=== PATIENT | male | born 1950 | race Caucasian/White ===

== ENCOUNTER 2017-11-29 07:43 | Inpatient (IN) | payer MEDICARE, BC ==
[2017-11-29] VITALS (17 sets, daily range): BP systolic 114–133; BP diastolic 50–75
[~2017-11-29] VITALS: Ht 152.4 cm; Wt 73.0 kg
[~2017-11-29 07:43] MED LIST: ASPIR 8181 MG PO; CALCIUM 500+D1 EAC2 PO; CENTRUM SILVER1 EAC4 PO; DIOVAN 80 MG TA80 M1 PO; EFFIENT10 MG PO; HYDRALAZINE 2525 MG PO; PLAVIX 75 MG TA75 M1 PO; SIMVASTATIN40 MG PO; TOPROL XL50 MG PO
[2017-11-29 08:22] LABS: HEMATOCRIT 41.1 % (42.0-52.0); HEMOGLOBIN 14.1 gm/dL (14.0-18.0); MCH 29.6 pg (26.0-34.0); MCHC 34.3 g/dL (28.0-37.0); MCV 86.2 fL (80.0-100.0); MPV 8.6 fl. (7.2-11.1); RBC 4.77 mil/uL (4.50-6.00); RDW-CV 13.3 % (10.5-14.5); WBC 6.5 thou/uL (4.0-11.0)
[2017-11-29 08:32] LABS: APTT 25.4 Seconds (25.0-31.3); INR 1.1; PROTIME 10.6 Seconds (9.20-11.50)
[2017-11-29 08:33] LABS: ANION GAP 8 mmol/L (7-16); BUN 21 mg/dL (7-18); CALCIUM 9.5 mg/dL (8.5-10.1); CHLORIDE 104 mmol/L (98-107); CO2 28 mmol/L (21-32); CREATININE 1.2 mg/dL (0.6-1.3); GLUCOSE 116 mg/dL (70-99); SODIUM 140 mmol/L (136-145)
[2017-11-29 08:37] LABS: ALKALINE PHOSPHATASE 52 U/L (46-116); CHOLESTEROL 102 mg/dL (<200); HDL CHOLESTEROL 49 mg/dL (>40); LDL CHOLESTEROL 47 mg/dL (<100); SERUM ASSESSMENT Clear; SGOT 25 U/L (15-37); SGPT 34 U/L (30-65); TC:HDL 2.1 Ratio (Not establshd); TOTAL BILIRUBIN 0.4 mg/dL (<0.1-1.0); TOTAL PROTEIN 7.4 g/dL (6.4-8.2); TRIGLYCERIDE 33 mg/dL (<150); VLDL 7 mg/dL (<40)
--- NOTE | 2017-11-29 14:54 | NUR ---
RECIEVED REPORT FROM MONICA RN IN NETWORK PLANNER OF EXPECTED TRANSFER POST CATH WITH 1 STENT REPORTED TO HAVE BEEN PLACED @1351-PT HERE FOR PLANNED CATH POST ABNORMAL STRESS X1 MONTH AGO- PT ARRIVED TO UNIT VIA CART AT @ 1405- PT ASSITED VIA SLIDE X2 TO BED-SILK FINISHER PLACED ORDERED, TRACING SR- PT A&O X4- CONTINENT OF BOWEL AND BLADDER- BEDREST AT THIS TIME POST CATH WITH RIGHT LEG INSTRUCTED NOT TO MOVE AT THIS TIME- LCTA, RESP EVEN AND UN-LABORED- VS 98.6 18 129/58 61 97% ON RA- ABDOMEN SOFT/ROUND/NON-TENDER, BS X4 QUADS- PT REPORTS TO HAVE HAD BM THIS AM- TRACE EDEMA NOTED TO BLE- IV NOTED TO LEFT AC INTACT, IVF INFUSING PRESCIBED- RIGHT GROIN ACCESSED PER CATH, AREA C/D/I WITH GAUZE DRESSING AND SECURED WITH TRANSPARENT TEGADREM- NO HEMATOMA NOTED C/D/I WITH NO DRAINAGE NOTED- CAP < 3, SENSATION INTACT- PT DENEIS ANY C/O PAIN/DISCOMFORT AT THIS TIME- CALL LIGHT AND PERSOANL BELONGINGS WITH IN REACH- HOURLY ROUNDS IN PLACE R/T SAFETY/NEEDS- ALL NEEDS MET AT THIS TIME-WCTM
--- NOTE | 2017-11-29 18:12 | EKG ---
[place] [address] ELECTROCARDIOGRAM REPORT Name: BILLIE QUINTERO Room: [address] ADM IN M.R.#: [id number] Admission: 11/29/17 Attend Phys: Christiano Bernal MD, Discharge: Date of : 48 Report #: [id number] THIS REPORT FOR: //name// [facility] Test Date: 2017-11-29 Test Time: 09:30:47 Pat Name: BILLIE QUINTERO Department: Room: [facility] Gender: M Mounter Saxophones: 26 : 1950 Requested By: Christiano Bernal Order Number: [id number] Adriana MD: Christiano Bernal Measurements Intervals [place] Rate: 61 P: 53 WI: 143 QRS: 85 QRSD: 94 T: 54 QT: 378 QTc: 381 Interpretive Statements Sinus rhythm Borderline right axis deviation Minimal ST elevation, anterior leads Compared to ECG 08/25/2016 08:26:01 ST (T wave) deviation now present Electronically Signed On 11-29-2017 18:12:21 CDT by Christiano Bernal [email or web address] <ELECTRONICALLY SIGNED> By: Christiano Bernal MD, FAC 11/29/17 1812 Christiano Bernal MD, [facility] /EPI
--- NOTE | 2017-11-29 18:17 | EKG ---
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26 : 1950 Requested By: Christiano Bernal Order Number: [id number] Adriana MD: Christiano Bernal Measurements Intervals [place] Rate: 59 P: 53 [place]: 147 QRS: 83 QRSD: 85 T: 61 QT: 375 QTc: 372 Interpretive Statements Sinus rhythm Borderline right axis deviation Borderline low voltage, extremity leads Compared to ECG 08/25/2016 08:26:01 No significant changes Electronically Signed On 11-29-2017 18:17:06 CDT by Christiano Bernal [email or web address] <ELECTRONICALLY SIGNED> By: Christiano Bernal MD, [facility] 11/29/177 111 111 Christiano Bernal MD, FAC /EPI
[2017-11-30] VITALS: BP 125/56; BP 127/61
[2017-11-30 04:00] VITALS: BP 125/56
[2017-11-30 05:52] LABS: HEMATOCRIT 36.5 % (42.0-52.0); HEMOGLOBIN 12.7 gm/dL (14.0-18.0); MCHC 34.7 g/dL (28.0-37.0); MCV 86.5 fL (80.0-100.0); MPV 8.8 fl. (7.2-11.1); RBC 4.22 mil/uL (4.50-6.00); RDW-CV 13.1 % (10.5-14.5)
--- NOTE | 2017-11-30 05:54 | NUR ---
ASSUMED CARE AT 1945, ASSESSMENT CHARTED. PATIENT ALERT/ORIENTED X4, SITTING UP IN BED WATCHING TV. ON TELE, SB/SR. ON ROOM AIR, NO SOB NOTED, SATS 95%. IVF INFUSING TO LEFT AC IV SITE PER MAR, DECREASED RATE AT APPROX 0400 PER ORDERS. UP IN ROOM AD SUZY AFTER AMBULATING AROUND HALLWAY WITH STAFF AT SIDE, SOB WITH EXERTION. STEADY GAIT NOTED. DENIES PAIN, CHEST PAIN OR NEEDS. MEDS PER MAR. REFUSING SCD'S. RIGHT GROIN SITE D/I, SITE SOFT WITH NO HEMATOMA NOTED. CALL LIGHT WITHIN REACH, ENCOURAGED TO CALL FOR NEEDS.
[2017-11-30 06:39] LABS: ANION GAP 8 mmol/L (7-16); BUN 16 mg/dL (7-18); CHLORIDE 107 mmol/L (98-107); CO2 27 mmol/L (21-32); CREATININE 1.2 mg/dL (0.6-1.3); GLUCOSE 95 mg/dL (70-99); SODIUM 142 mmol/L (136-145); TROPONIN-I LEVEL <0.06 ng/mL (<0.06)
--- NOTE | 2017-11-30 07:45 | NUR ---
PATIENT RESTING IN BED. RIGHT GROIN SITE UNCHANGED. REPORT GIVEN TO ONCOMING NURSE. WILL MONITOR.
[2017-11-30 07:51] VITALS: BP 110/56
[2017-11-30 09:13] VITALS: BP 110/56
--- NOTE | 2017-11-30 09:33 | NUR ---
ASSUMED CARE OF PT THIS AM AROUND 0715- ON SITE NURSE IN PLACE ORDERED, TRACING SB/SR- UPON ASSESSMENT PT NOTED TO BE RESTING IN BED, WATCHING TV- PT A&O X4- CONTINENT OF BOWEL AND BLADDER- UP AD-SUZY IN ROOM, STEADY GAIT NOTED- LCTA, RESP EVEN AND UN-LABORED- VSS, O2 SAT 95% ON RA- ABDOMEN SOFT/ROUND/NON-TENDER, BS X4 QUADS- PT REPORTS BM THIS AM- TRACE EDEMA NOTED TO BLE- RIGHT GROIN SIGHT, C/D/I WIT NO DRAINGE OR HEMATOMA NOTED- IV NOTED TO LEFT AC INTACT AND SL- GOOD PO INTAKE NOTED THIS AM WITH BREAKFAST- PT DENIES ANY C/O PAIN/DISCOMFORT AT THIS TIME- CALL LIGHT AND PERSONAL BELONGINGS WITH IN REACH- HOURLY ROUNDS IN PLACE R/T SAFETY/NEEDS- ALL NEEDS MET AT THIS TIME-WCTM
--- NOTE | 2017-11-30 10:19 | NUR ---
ORDERS RECIEVED THIS SHIFT PER FOR OKAY TO D/C HOME- IV TO LEFT AC D/C'D ALONG WITH CIVIL PROJECT ENGINEER PRIOR TO D/C- RIGHT GROIN DRESSING CHANGED THIS SHIFT PER CN- D/C TEACHING/EDUCAITON/GROIN SITE CARE GIVEN PRIOR TO D/C, ALL QUESTIONS AND CONCERNS ADDRESSED- BELONGINGS PACKED AND ACCOUNTED FOR PER PT- PT DRESSED AND CURRENLTY UP SITTING IN BED SIDE CHAIR AWAITING RIDE- ALL NEEDS MET AT THIS TIME-WCTM
--- NOTE | 2017-11-30 14:46 | EKG ---
[place] [address] ELECTROCARDIOGRAM REPORT Name: BILLIE QUINTERO Room: [address] IN M.R.#: [id number] Admission: 11/29/17 Attend Phys: Christiano Bernal MD, Discharge: 11/30/17 Date of : 48 Report #: [id number] THIS REPORT FOR: //name// [facility] Test Date: 2017-11-30 Test Time: 03:42:49 Pat Name: BILLIE QUINTERO Department: Room: [facility] Gender: M Guide Alpine: HEATH : 1950 Requested By: Christiano Bernal Order Number: [id number] Adriana MD: Abimael Lara Measurements Intervals [place] Rate: 58 P: 53 [place]: 141 QRS: 76 QRSD: 89 T: 66 QT: 383 QTc: 377 Interpretive Statements Sinus rhythm Low voltage, extremity leads Compared to ECG 11/29/2017 11:17:20 No significant changes Electronically Signed On 11-30-2017 14:46:22 CDT by Abimael Lara [email or web address] <ELECTRONICALLY SIGNED> By: Abimael Lara MD, [facility] 11/30/17 1446 0342 0342 Abimael Lara MD, [facility] /EPI
--- NOTE | 2017-11-30 17:21 | CARD ---
[address] [address] CARDIAC CATH REPORT Name: BILLIE QUINTERO Room: [address]#: [id number] Admission: 11/29/17 Attend Phys: Christiano Bernal MD, Discharge: 11/30/17 Date of : 48 Report #: [id number] THIS REPORT FOR: //name// APPROVED REPORT Patient Details Patient Status: Out-Patient Room #: The patient is a 67 year-old male Event Personnel Christiano Bernal Electronic Device Monitor, Gabi Armas RN RN, Anastasiia Looney, Rogelio Petersen Scrub Procedures Performed Art Access - R femoral artery* LONNY Place w/wo Plasty Addl BR DIAG 2 C9601 DESADDL ; left heart catheterization left ventriculography and selective coronary arteriography, SVG Angiogram Indication Dyspnea, Positive stress test Risk Factors Family History, Hypercholesterolemia, Hypertension Previous Procedures/Diagnoses Previous PCI Admission/Lab Medications/Medications given during procedure Angiomax bolus and infusion Procedure Narrative The patient was brought electively to the Cardiac Catheterization Laboratory and was prepped and draped in a sterile manner. The right femoral was infiltrated with 2% Lidocaine subcutaneous anesthesia. A 6fr Ultimum Sheath sheath was inserted into the right femoral artery. Coronary angiography was performed using coronary diagnostic catheters. The right coronary system was accessed and visualized with a Diagnostic catheter. The left coronary system was accessed and visualized with a Diagnostic catheter. The left ventricle was accessed and visualized with a Diagnostic catheter. Left ventricular/Aortic Valve gradient assessed via catheter pullback. Pre-demployment femoral angiogram was performed . Closure device was deployed with a 6 Fr Angioseal STS 6Fr. The patient tolerated the procedure well and there were no complications associated with the procedure. [place] [address] CARDIAC CATH REPORT Name: BILLIE QUINTERO Room: [address]#: [id number] Admission: 11/29/17 Attend Phys: Christiano Bernal MD, Discharge: 11/30/17 Date of : 48 Report #: [id number] Intraoperative Conscious Sedation Fentanyl --25 mcg Dose: 1376 mGy Contrast Type and Amount: Visipaque 210 ml Coronary Angiography The patient's coronary anatomy is right dominant. Diagnostic Cath Left Main 10% distal narrowing LAD 40% mid vessel narrowing with widely patent distal LAD stent Diagonal 1 Widely patent first diagonal stent Diagonal 2 80% proximal stenosis Circumflex 30% mid vessel narrowing Right Coronary Dominant vessel with 30% mid and 40% distal narrowings Left Ventriculography The left ventricle is normal in size with normal contractility. The left ventricular ejection fraction is estimated to be 55%. Left ventricular wall motion abnormalities are present. Mild mid anterior hypokinesis Hemodynamics The aortic pressure is 137/61 mmHg with a mean of 88 mmHg. The left ventricular pressure is 136/3 mmHg with a mean of mmHg. The left ventricular end diastolic pressure is 11 mmHg. There was no gradient across the aortic valve upon pullback. PCI Technique Lesion Anticoagulation was achieved with Angiomax. Patient was preloaded with Plavix. Percutaneous coronary intervention was performed on the second diagnonal branch segment. The lesion stenosis prior to intervention was 80% with LENA 3 flow. A 6FR XB 3.0 100CM Guide Catheter was used to engage the ostium. A IG: ProwaterFlex 180CM Interventional Guidewire was used to cross the lesion. STENT DEPLOYMENT A drug-eluting stent Xience Alpine RX 2.25X08 was inserted and inflated up to 5.00atm for 9seconds. Additional Inflation: 6.00atm for 5seconds. Additional Inflation: 7.00atm for 9seconds. Final angiography reveals 0 % stenosis with LENA 3 [place] [address] CARDIAC CATH REPORT Name: BILLIE QUINTERO Room: [address]#: [id number] Admission: 11/29/17 Attend Phys: Christiano Bernal MD, Discharge: 11/30/17 Date of : 48 Report #: [id number] flow. Conclusion #1 significant coronary artery disease characterized by the following: A 10% distal left vein coronary artery narrowing, B 40% mid LAD narrowing with widely patent distal LAD stent, C widely patent first diagonal stent with 80% proximal second diagonal stenosis, D 30% mid circumflex proximal narrowing, E dominant right coronary artery with widely patent proximal stent, 30% mid vessel narrowing and 40% distal right coronary narrowing #2 normal left-sided hemodynamics study, #3 normal global left ventricular systolic function with estimated ejection fraction of 55% with mild mid anterior hypokinesis #4 successful percutaneous coronary intervention with deployment of drug-eluting stent at site of 80% second diagonal stenosis with 0% residual narrowing following stent deployment and LENA-3 flow to the distal vessel Recommendations Daily ASA with Plavix for at least one year Aggressive Medical Therapy Medications Administered Aspirin (any) Clopidogrel Diagnostic Cath Approved by: Christiano Bernal MD Date/Time: 11/30/17 at 1718 hrs. <ELECTRONICALLY SIGNED> By: Christiano Bernal MD, FACC 11/30/171719 19 19Christiano Bernal MD, FACC /INF
--- NOTE | 2017-12-02 17:13 | H ---
[address] [address] HISTORY AND PHYSICAL Name: BILLIE QUINTERO Room: [address]#: [id number] Admission: 11/29/17 Attend Phys: Christiano Bernal MD, Discharge: 11/30/17 Date of : 48 Report #: [id number] THIS REPORT FOR: //name// CC: Lorne Bernal DATE OF SERVICE: 11/29/2017 HISTORY OF PRESENT ILLNESS: The patient is a very pleasant 67-year-old male with known coronary artery disease. He has underlying hypertension and hypercholesterolemia. He is status post multivessel stenting at different times, most recently to the first diagonal branch of the LAD in 08/2016. Recently, he has noted shortness of breath on exertion. A stress echocardiogram was remarkable for marked ST-T changes with anterolateral hypokinesis. MEDICATIONS: Have included aspirin 81 mg daily, calcium carbonate 500 mg daily, clopidogrel 75 mg daily, hydralazine 25 mg b.i.d., Toprol-XL 50 mg daily, multivitamin with mineral, simvastatin 40 mg daily and valsartan 80 mg daily. Risk factors for coronary artery disease include hypertension and hypercholesterolemia. He is a nonsmoker. FAMILY HISTORY: Negative for premature coronary artery disease. SOCIAL HISTORY: The patient works regular. He is a nonsmoker. PHYSICAL EXAMINATION: GENERAL: Reveals a middle-aged male, in no acute distress. VITAL SIGNS: Blood pressure 130/70, pulse rate is 68 and respirations are 18 per minute. NECK: Jugular venous pressure is normal, with carotids being 1 to 2+. CHEST EXAMINATION: Clear. CARDIAC EXAMINATION: Reveals normal first and second heart sounds without rubs, murmurs or gallops. ABDOMEN: Mildly obese. EXTREMITIES: Without edema with intact femoral, pedal and radial pulses. IMPRESSION: 1. Abnormal stress echocardiogram with inducible anterolateral ischemia suggested on echo evaluation with marked ST-T changes suggesting ischemia. 2. Coronary artery disease. 3. Status post multiple prior percutaneous coronary interventions. 4. Hypertension. 5. [place] [address] HISTORY AND PHYSICAL Name: QUINTEROBILLIE Room: [address]#: [id number] Admission: 11/29/17 Attend Phys: Christiano Bernal MD, Discharge: 11/30/17 Date of : 48 Report #: [id number] PLAN: Given the aforementioned clinical scenario with known coronary artery disease and a recently abnormal stress echocardiogram with dyspnea on exertion, I recommended proceeding with cardiac catheterization to define current coronary anatomy and prospects for subsequent therapeutic modification. This has been discussed with the patient. <ELECTRONICALLY SIGNED> By: Christiano Bernal MD, [facility] 12/02/17 1713 1056 [id number] Santos Bernal MD, FACC /nt
--- NOTE | 2017-12-02 17:14 | D ---
[address] [address] DISCHARGE SUMMARY Name: LEONBILLIE Candace Room: [address] IN M.R.#: [id number] Admission: 11/29/17 Attend Phys: Christiano Bernal MD, Discharge: 11/30/17 Date of : 48 Report #: [id number] THIS REPORT FOR: //name// CC: Lorne Bernal DATE OF SERVICE: 11/30/2017 FINAL DISCHARGE DIAGNOSES: 1. Abnormal stress echocardiogram with marked ST-segment changes and anterolateral hypokinesis. 2. Coronary artery disease. 3. Status post multiple percutaneous coronary interventions. 4. Status post percutaneous coronary intervention of the second diagonal branch of the LAD on 11/29/2017. 5. Hypertension. 6. Hyperlipoproteinemia. PROCEDURES: 11/29/2017 -- left heart catheterization, left ventriculography, selective coronary arteriography and percutaneous coronary intervention with deployment of drug-eluting stent at site of 80% stenosis in the mid portion of prominent second diagonal branch of the LAD. The patient is a pleasant 67-year-old male with hypertension, hypercholesterolemia and multiple prior percutaneous coronary interventions. He presented recently to our office with dyspnea on exertion and stress echocardiogram demonstrated marked EKG changes with 2-[address] segment depression and anterolateral hypokinesis. In this context, I performed cardiac catheterization on 11/29/2017, which revealed widely patent LAD, first diagonal, circumflex, and right coronary stents. There was an 80% stenosis in the second diagonal branch of the LAD with hypokinesis in that region on left ventriculography. I elected to perform percutaneous coronary intervention, deploying one 2.25 x 8 mm Xience Alpine drug-eluting stent in the second diagonal with a 0% residual narrowing and LENA 3 flow of the distal vessel. The patient did well post-procedurally, and there was good hemostasis at the right femoral site of catheterization. He ambulated in the hallways without difficulty. Lab revealed a hemoglobin of 12.7, hematocrit 36.5, white blood cell count 6000, with 148,000 platelets. Sodium 142, potassium 4.0, BUN 16, creatinine 1.2. Troponin less than 0.06. The patient was discharged to home in stable condition on 11/30/2017 on the following medications: Aspirin 81 mg daily, calcium carbonate and vitamin D3 one tablet daily, Plavix or clopidogrel 75 mg daily, with a 600 mg dose given periprocedurally. Hydralazine 25 mg b.i.d., metoprolol succinate or Toprol-XL 50 mg daily, multivitamins with minerals 1 tablet daily, simvastatin 40 [place] [address] DISCHARGE SUMMARY Name: BILLIE QUINTERO Room: [address] M.R.#: [id number] Admission: 11/29/17 Attend Phys: Christiano Bernal MD, Discharge: 11/30/17 Date of : 48 Report #: [id number] bedtime and valsartan 320 mg daily. I will plan to see the patient in followup in 4-6 weeks. <ELECTRONICALLY SIGNED> By: Christiano Bernal MD, [facility] 12/02/17 1714 0903 [id number] Bernal MD, FAC /nt
== END 2017-11-30 10:50 | disposition home or self-care (01) | DRG 247 ==
LOC: M.CL 07:43 → M.TBA-CV 11:01 → M.2W 11:01
PROVIDERS: ADMIT Internal Medicine
PROC: B215YZZ Fluoroscopy of Left Heart using Other Contrast (ICD-10-PCS; principal; 2017-11-30)
PROC: B211YZZ Fluoroscopy of Multiple Coronary Arteries using Other Contrast (ICD-10-PCS; principal; 2017-11-30)
PROC: 4A023N7 Measurement of Cardiac Sampling and Pressure, Left Heart, Percutaneous Approach (ICD-10-PCS; principal; 2017-11-30)
PROC: 027034Z Dilation of Coronary Artery, One Artery with Drug-eluting Intraluminal Device, Percutaneous Approach (ICD-10-PCS; principal; 2017-11-30)
DX: I25.10 Atherosclerotic heart disease of native coronary artery without angina pectoris (principal); I10 Essential (primary) hypertension; E78.5 Hyperlipidemia, unspecified; E78.00 Pure hypercholesterolemia, unspecified; Z95.5 Presence of coronary angioplasty implant and graft